=== PATIENT | male | born 1945 | race Caucasian/White ===

== ENCOUNTER → 2020-07-01 10:13 | Outpatient (CLI) | payer MEDICARE, SELFPAY ==
[2020-07-02 13:28] LABS: PSA, Free 1.49 ng/mL; Prostate Specific Ag 6.2 ng/mL (0.0-4.0)
== END ==
PROVIDERS: Visit Provider Urology
DX: R97.20 Elevated prostate specific antigen [PSA] (principal)
CPT/HCPCS: 36415; 84153; 84154

== ENCOUNTER → 2021-01-01 10:19 | Outpatient (CLI) | payer MEDICARE, SELFPAY ==
[2021-01-02 15:34] LABS: PSA, Free 1.29 ng/mL; Prostate Specific Ag 6.1 ng/mL (0.0-4.0)
[2021-01-05 23:26] LABS: Testosterone, Total, LC/MS 649.6 ng/dL (264.0-916.0); Testosterone,Free 8.4 pg/mL (6.6-18.1)
== END ==
PROVIDERS: Visit Provider Urology
DX: R97.20 Elevated prostate specific antigen [PSA] (principal); N40.0 Benign prostatic hyperplasia without lower urinary tract symptoms
CPT/HCPCS: 36415; 84153; 84154; 84402; 84403

== ENCOUNTER → 2022-01-04 13:35 | Outpatient (CLI) | payer MEDICARE, SELFPAY ==
[2022-01-06 09:13] LABS: PSA, Free 1.69 ng/mL; Prostate Specific Ag 6.5 ng/mL (0.0-4.0)
== END ==
PROVIDERS: PCP Pediatrics; Visit Provider Urology
DX: R97.20 Elevated prostate specific antigen [PSA] (principal)
CPT/HCPCS: 36415; 84153; 84154